=== PATIENT | male | born 1945 | race Hispanic/Latino ===

== ENCOUNTER 2018-01-31 07:59 | Outpatient (CLI) | payer MEDICARE, OTHER ==
[2018-01-31] MEDS ORDERED: XYLOCAINE TOPICAL 4% TP ONE ×2 (09:48→10:10)
[2018-01-31] MEDS ORDERED: SILVER NITRATE TP ONE ×2 (10:16→12:19)
== END 2018-01-31 08:00 | disposition home or self-care (01) ==
LOC: WOUND 07:59
PROVIDERS: ATTEND Surgery
DX: E11.621 Type 2 diabetes mellitus with foot ulcer (principal); L97.423 Non-pressure chronic ulcer of left heel and midfoot with necrosis of muscle; I10 Essential (primary) hypertension; E78.00 Pure hypercholesterolemia, unspecified; Z86.73 Personal history of transient ischemic attack (TIA), and cerebral infarction without residual deficits; Z98.42 Cataract extraction status, left eye; Z98.41 Cataract extraction status, right eye
CPT/HCPCS: 11043; G0463

== ENCOUNTER 2018-02-02 09:13 | Outpatient (CLI) | payer MEDICARE, OTHER ==
--- NOTE | 2018-02-05 14:59 | Vascular Lab Report ---
LOWER EXTREMITY ARTERIAL DUPLEX: REASON FOR EXAM: Left foot ulcer. COMMENTS ON THE RIGHT: A limited study was done of the right lower extremity. Triphasic waveforms are noted in the posterior tibial artery. Biphasic waveforms are noted in the anterior tibial artery. Monophasic waveforms are noted in the dorsalis pedis artery. COMMENTS ON THE LEFT: Triphasic waveforms are seen proximally. Monophasic waveforms are seen distally. 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 Scattered plaque is seen throughout. Findings are consistent with abnormal perfusion. Findings are not consistent with the ability to heal distal wounds. IMPRESSION: RIGHT: Evidence of arterial occlusive disease. Magnitude cannot be determined. LEFT:Evidence of popliteal artery occlusive disease and distal tibial disease. Recommend further evaluation.
== END 2018-02-02 09:14 | disposition home or self-care (01) ==
LOC: VAS 09:13
PROVIDERS: ATTEND Surgery
DX: E11.621 Type 2 diabetes mellitus with foot ulcer (principal); I73.9 Peripheral vascular disease, unspecified

== ENCOUNTER → 2018-02-14 | Outpatient (CLI) | payer MEDICARE, OTHER ==
[~2018-02-14] MED LIST: SILVER NITRATE TP ONE; XYLOCAINE TOPICAL 4% TP ONE
== END | disposition home or self-care (01) ==
LOC: WOUND 13:10
PROVIDERS: ATTEND Surgery
DX: E11.621 Type 2 diabetes mellitus with foot ulcer (principal); L97.423 Non-pressure chronic ulcer of left heel and midfoot with necrosis of muscle; I10 Essential (primary) hypertension; E78.00 Pure hypercholesterolemia, unspecified; Z86.73 Personal history of transient ischemic attack (TIA), and cerebral infarction without residual deficits; Z98.42 Cataract extraction status, left eye; Z98.41 Cataract extraction status, right eye

== ENCOUNTER 2018-02-21 10:25 | Outpatient (CLI) | payer MEDICARE, OTHER ==
[2018-02-21] MEDS ORDERED: XYLOCAINE TOPICAL 4% TP ONE ×2 (10:35→13:39)
== END 2018-02-21 10:26 | disposition home or self-care (01) ==
LOC: WOUND 10:25
PROVIDERS: ATTEND Surgery
DX: E11.621 Type 2 diabetes mellitus with foot ulcer (principal); L97.423 Non-pressure chronic ulcer of left heel and midfoot with necrosis of muscle; I10 Essential (primary) hypertension; E78.00 Pure hypercholesterolemia, unspecified; Z86.73 Personal history of transient ischemic attack (TIA), and cerebral infarction without residual deficits; Z98.42 Cataract extraction status, left eye; Z98.41 Cataract extraction status, right eye

== ENCOUNTER 2018-03-07 10:41 | Outpatient (CLI) | payer MEDICARE, OTHER ==
[2018-03-07] MEDS ORDERED: XYLOCAINE TOPICAL 4% TP ONE ×2 (11:01→11:12)
[2018-03-07] MEDS ORDERED: SILVER NITRATE TP ONE ×2 (11:23→11:28)
== END 2018-03-07 10:42 | disposition home or self-care (01) ==
LOC: WOUND 10:41
PROVIDERS: ATTEND Surgery
DX: E11.621 Type 2 diabetes mellitus with foot ulcer (principal); L97.423 Non-pressure chronic ulcer of left heel and midfoot with necrosis of muscle; I10 Essential (primary) hypertension; E78.00 Pure hypercholesterolemia, unspecified; Z86.73 Personal history of transient ischemic attack (TIA), and cerebral infarction without residual deficits; Z98.42 Cataract extraction status, left eye; Z98.41 Cataract extraction status, right eye

== ENCOUNTER 2018-03-07 12:00 | Outpatient (CLI) | payer MEDICARE, OTHER | END 2018-03-07 12:01 | disposition home or self-care (01) | LOC: LAB 12:00 | PROVIDERS: ATTEND Surgery | DX: E11.621 Type 2 diabetes mellitus with foot ulcer (principal) | CPT/HCPCS: 36415; 82565 ==

== ENCOUNTER 2018-03-14 10:39 | Outpatient (CLI) | payer MEDICARE, OTHER ==
[2018-03-14] MEDS ORDERED: XYLOCAINE TOPICAL 4% TP ONE ×2 (10:44→10:48)
[2018-03-14] MEDS ORDERED: SILVER NITRATE TP ONE (11:01)
[2018-03-15] MEDS ORDERED: SILVER NITRATE TP ONE (12:11)
== END 2018-03-14 10:40 | disposition home or self-care (01) ==
LOC: WOUND 10:39
PROVIDERS: ATTEND Surgery
DX: E11.621 Type 2 diabetes mellitus with foot ulcer (principal); L97.423 Non-pressure chronic ulcer of left heel and midfoot with necrosis of muscle; I10 Essential (primary) hypertension; E78.00 Pure hypercholesterolemia, unspecified; Z86.73 Personal history of transient ischemic attack (TIA), and cerebral infarction without residual deficits; Z98.42 Cataract extraction status, left eye; Z98.41 Cataract extraction status, right eye

== ENCOUNTER 2018-03-21 12:18 | Outpatient (CLI) | payer MEDICARE, OTHER ==
--- NOTE | 2018-03-22 08:41 | Magnetic Resonance Report ---
MR LOWER EXTREMITY NON-JOINT LEFT WITHOUT CONTRAST HISTORY: Diabetes, foot ulcer. TECHNIQUE: Multisequence, multiplanar MRI without contrast. FINDINGS: A marker is placed on the plantar surface of the foot just beneath the first metatarsophalangeal joint. There is no discrete abnormality underlying the marker. There is a skin ulceration measuring up to 3.8 cm in diameter on the plantar surface of the midfoot. There is no evidence for abscess. The bony structures demonstrate normal signal. No findings to suggest fracture or osteomyelitis. Advanced degenerative changes in the midfoot versus Charcot joint is suspected. The musculotendinous structures appear intact. IMPRESSION: Foot ulcer as described. No evidence for abscess or osteomyelitis. Probable Charcot joint.
== END 2018-03-21 12:19 | disposition home or self-care (01) ==
LOC: MRI 12:18
PROVIDERS: ATTEND Surgery
DX: E11.621 Type 2 diabetes mellitus with foot ulcer (principal); L97.528 Non-pressure chronic ulcer of other part of left foot with other specified severity

== ENCOUNTER 2018-03-28 10:39 | Outpatient (CLI) | payer MEDICARE, OTHER ==
[2018-03-28] MEDS ORDERED: XYLOCAINE TOPICAL 4% TP ONE ×2 (11:15→15:01)
[2018-03-28] MEDS ORDERED: SILVER NITRATE TP ONE ×2 (12:04→16:30)
== END 2018-03-28 10:40 | disposition home or self-care (01) ==
LOC: WOUND 10:39
PROVIDERS: ATTEND Surgery
DX: E11.621 Type 2 diabetes mellitus with foot ulcer (principal); L97.423 Non-pressure chronic ulcer of left heel and midfoot with necrosis of muscle; I10 Essential (primary) hypertension; E78.00 Pure hypercholesterolemia, unspecified; Z86.73 Personal history of transient ischemic attack (TIA), and cerebral infarction without residual deficits; Z98.42 Cataract extraction status, left eye; Z98.41 Cataract extraction status, right eye

== ENCOUNTER 2018-04-04 12:15 | Outpatient (CLI) | payer MEDICARE, OTHER ==
[2018-04-04] MEDS ORDERED: SILVER NITRATE TP ONE ×2 (13:19→13:58)
== END 2018-04-04 12:16 | disposition home or self-care (01) ==
LOC: WOUND 12:15
PROVIDERS: ATTEND Surgery
DX: E11.621 Type 2 diabetes mellitus with foot ulcer (principal); L97.423 Non-pressure chronic ulcer of left heel and midfoot with necrosis of muscle; I10 Essential (primary) hypertension; E78.00 Pure hypercholesterolemia, unspecified; Z86.73 Personal history of transient ischemic attack (TIA), and cerebral infarction without residual deficits; Z98.42 Cataract extraction status, left eye; Z98.41 Cataract extraction status, right eye
CPT/HCPCS: 29445

== ENCOUNTER 2018-04-09 12:45 | Outpatient (CLI) | payer MEDICARE, OTHER | END 2018-04-09 12:46 | disposition home or self-care (01) | LOC: WOUND 12:45 | PROVIDERS: ATTEND Surgery | DX: E11.621 Type 2 diabetes mellitus with foot ulcer (principal); L97.423 Non-pressure chronic ulcer of left heel and midfoot with necrosis of muscle; I10 Essential (primary) hypertension; E78.00 Pure hypercholesterolemia, unspecified; Z86.73 Personal history of transient ischemic attack (TIA), and cerebral infarction without residual deficits; Z98.42 Cataract extraction status, left eye; Z98.41 Cataract extraction status, right eye | CPT/HCPCS: 29445; 87075; 87076; 87116; 87186 ==

== ENCOUNTER 2018-04-19 11:05 | Outpatient (CLI) | payer MEDICARE, OTHER ==
[~2018-04-19 11:05] MED LIST changes: -SILVER NITRATE TP ONE
[2018-04-19] MEDS ORDERED: SILVER NITRATE TP ONE (11:10)
[2018-04-19] MEDS ORDERED: XYLOCAINE TOPICAL 4% TP ONE (11:10)
== END 2018-04-19 11:06 | disposition home or self-care (01) ==
LOC: WOUND 11:05
PROVIDERS: ATTEND Surgery
DX: E11.621 Type 2 diabetes mellitus with foot ulcer (principal); L97.423 Non-pressure chronic ulcer of left heel and midfoot with necrosis of muscle; I10 Essential (primary) hypertension; E78.00 Pure hypercholesterolemia, unspecified; Z86.73 Personal history of transient ischemic attack (TIA), and cerebral infarction without residual deficits; Z98.42 Cataract extraction status, left eye; Z98.41 Cataract extraction status, right eye

== ENCOUNTER 2018-04-25 09:47 | Outpatient (CLI) | payer MEDICARE, OTHER ==
[2018-04-25] MEDS ORDERED: XYLOCAINE TOPICAL 4% TP ONE ×2 (09:52→10:03)
[2018-04-25] MEDS ORDERED: SILVER NITRATE TP ONE (10:11)
[2018-04-25] MEDS ORDERED: DAKIN'S FULL STRENGTH ONE (10:18)
[2018-04-25] MEDS ORDERED: DAKIN'S HALF STRENGTH TP SCH (11:00)
== END 2018-04-25 09:48 | disposition home or self-care (01) ==
LOC: WOUND 09:47
PROVIDERS: ATTEND Surgery
DX: E11.621 Type 2 diabetes mellitus with foot ulcer (principal); L97.423 Non-pressure chronic ulcer of left heel and midfoot with necrosis of muscle; I10 Essential (primary) hypertension; E78.00 Pure hypercholesterolemia, unspecified; Z86.73 Personal history of transient ischemic attack (TIA), and cerebral infarction without residual deficits; Z98.42 Cataract extraction status, left eye; Z98.41 Cataract extraction status, right eye
CPT/HCPCS: 11042; A6260